=== PATIENT | male | born 1960 | race Two or more races ===

== ENCOUNTER 2020-04-17 13:40 | Day surgery (SDC) | payer OTHER | END 2020-04-17 16:55 | disposition home or self-care (01) | LOC: AMB-ENDOS 13:40 | PROVIDERS: ATTEND Colon & Rectal Surgery | DX: K62.89 Other specified diseases of anus and rectum (principal); K64.1 Second degree hemorrhoids; Z20.828 Contact with and (suspected) exposure to other viral communicable diseases ==

== ENCOUNTER 2022-05-25 08:20 | Day surgery (SDC) | payer OTHER ==
[~2022-05-25] VITALS: Ht 167.6 cm; Wt 73.5 kg
[~2022-05-25 08:20] MED LIST: LEVOTHYROXINE25 MCG PO; TENORMIN25 MG PO
== END 2022-05-25 16:00 | disposition home or self-care (01) ==
LOC: CIR.AMB 08:20
PROVIDERS: ATTEND Colon & Rectal Surgery
DX: K62.9 Disease of anus and rectum, unspecified (principal); D12.9 Benign neoplasm of anus and anal canal; K64.8 Other hemorrhoids; D12.8 Benign neoplasm of rectum; Z86.16 Personal history of COVID-19; E11.9 Type 2 diabetes mellitus without complications; Z20.822 Contact with and (suspected) exposure to COVID-19